=== PATIENT | male | born 2000 | race Hispanic/Latino ===

== ENCOUNTER → 2024-01-28 | Day surgery (SDC) | payer OTHER ==
[~2024-01-28] MED LIST: GLUCAGON FOR INJ 1 MG VIAL ONE; LACTULOSE20 GM/30 M PO; LIDOCAINE HCL 2% LOCAL 20 ML VIAL ONE; MIDAZOLAM HCL 2 MG/2 ML VIAL ONE; PROPOFOL IV EMULSION 10 MG/ML 20 ML VIAL ONE
[2024-01-28] MEDS: LACTATED RINGER'S 1,000 ML ONE (06:32)
[2024-01-28 09:37] VITALS: BP 132/81; PULSE 84; RESP 17; O2SAT 98
== END | disposition home or self-care (01) ==
LOC: ENDO 05:45
PROVIDERS: ATTEND Internal Medicine Gastroenterology
DX: N32.1 Vesicointestinal fistula (principal); Z86.0100 Personal history of colon polyps, unspecified; K62.6 Ulcer of anus and rectum; K57.30 Diverticulosis of large intestine without perforation or abscess without bleeding; K64.8 Other hemorrhoids; Z87.19 Personal history of other diseases of the digestive system; Q93.82 Williams syndrome; K59.00 Constipation, unspecified; K62.5 Hemorrhage of anus and rectum; N39.0 Urinary tract infection, site not specified; F41.9 Anxiety disorder, unspecified
CPT/HCPCS: 45331; 88305; J1610; J2003; J2250; J2704; J7121; 45330